=== PATIENT | female | born 1945 | race Caucasian/White ===

== ENCOUNTER 2024-02-12 09:40 | Observation (INO) | payer OTHER, BC ==
[2024-02-12] MEDS ORDERED: NA CHLORIDE 0.9% 500 ML ONE (11:05)
[2024-02-12] MEDS ORDERED: AZITHROMYCIN 250 MG TAB ONE (11:05)
[2024-02-12] MEDS ORDERED: ACETAMINOPHEN 325 MG TABLET ONE (11:05)
--- NOTE | 2024-02-12 11:08 | RAD REPORT ---
Procedure: Chest Pa And Lat (2 Views) HISTORY: Cough COMPARISON: 2017 FINDINGS: The lungs appear clear of acute infiltrate. Bilateral calcified lung granulomas. Calcified hilar lymp h nodes. No significant pleural effusion noted. The heart is normal size. IMPRESSION: No acute abnormality is displayed.
[2024-02-12] MEDS ORDERED: FAMOTIDINE 20 MG/2 ML VIAL IV ONE (11:18)
[2024-02-12] MEDS ORDERED: ASPIRIN 81 MG CHEWABLE TABLET ONE ×2 (11:18→13:21)
[2024-02-12 11:29] LABS: Absolute Basophils 0.1 K/uL (0-0.5); Absolute Lymphocytes (CBC) 1.3 K/uL (0.7-4.9); Absolute Monocytes 0.6 K/uL (0.1-1.3); Absolute Neutrophil 7.8 K/uL (1.8-8.0); Basophils % 0.9 % (0-1.3); Eosinophils % 0.2 % (0-4.4); Hematocrit 35.1 % (36.0-45.0); Hemoglobin 11.5 g/dL (12.0-15.0); Lymphocytes % 13.4 % (15.3-44.8); MCH 27.9 pg (27.0-35.0); MCHC 32.8 g/dL (32.0-36.0); MCV 85.1 fL (80-100); MPV 7.9 fL (7.6-11.3); Monocytes % 6.4 % (3.3-12.3); Neutrophils % 79.1 % (41.7-73.7); Platelets 294 thou/uL (152-406); RBC Red Blood Cell Count 4.13 M/uL (3.86-4.86); Red Cell Distribution Width 16.5 % (12.1-15.2)
[2024-02-12 11:48] LABS: SARS-CoV-2 Antigen CONTROL BLUE LINE VIS/BG OK; SARS-CoV-2 Antigen Rapid Res Negative (Negative)
[2024-02-12 11:49] LABS: Albumin/Globulin Ratio 1.2 (1.1-1.8); Anion Gap 7.8 mEq/L (5.0-15.0); Bilirubin Total 0.4 mg/dL (0.2-1.0); Globulin 3.3 g/dL (2.3-3.5); Potassium 3.8 mEq/L (3.5-5.1); Protein, Total 7.3 g/dL (6.4-8.2)
[2024-02-12 11:58] LABS: Troponin High Sensitivity 10.3 pg/mL (<58.9)
--- NOTE | 2024-02-12 12:42 | RAD REPORT ---
EXAMINATION: CTA CHEST PE CLINICAL INDICATION: Shortness of breath TECHNIQUE: 100 cc 370 Isovue administered intravenously. This examination was performed according to an angiographic protocol with 3D post-processing. This involves 3D reconstructions, MIPs, volume rendered images and/or shaded surface rendering. One or more of the following dose reduction techniqu es were used: Automated exposure control, adjustment of the mA and/or kV according to patient size, and/or iterative reconstruction. Unless otherwise specified, incidental findings do not require dedic ated imaging follow-up. [id number]. COMPARISON: No prior exam. FINDINGS: A pulmonary embolus is not seen. An aortic aneurysm not noted. No pleural effusion. No pericardial effusion. Bilateral calcified lung granulomas are present. IMPRESSION: No evidence of a pulmonary embolism
--- NOTE | 2024-02-12 12:47 | RAD REPORT ---
EXAMINATION: CT ABDOMEN AND PELVIS WITH CONTRAST CLINICAL INDICATION: Abdominal pain TECHNIQUE: CT abdomen and pelvis was performed, after the administration of 100 cc Isovue-300.. Sagit andrew and coronal reconstructions were obtained. One or more of the following dose reduction techniques were used: Automated exposure control, adjustment of the mA and kV according to patient si ze, and iterative reconstruction. Unless otherwise specified, incidental findings do not require dedicated imaging follow-up. [id number]. Oral contrast was not given which limits evaluation of bowel and appendix. COMPARISON: .2018 FINDINGS: Liver, spleen, pancreas, adrenals and kidneys appear unremarkable. Small renal cysts. Cholecystectomy. Post surgical changes involve the colon. Most of the colon has been resected. No obstruction. Spondylosis lumbar spine results in spinal stenosis. Hysterectomy. No adnexal mass. No evidence of diverticulitis. : IMPRESSION: No acute abnormality displayed
[2024-02-12 13:07] LABS: Specific Gravity 1.019 (1.005-1.030); Sqamous Epithelial <5 /HPF (None Seen); Urine Bacteria None Seen /HPF (<20); Urine Bilirubin NEGATIVE (Negative); Urine Blood Negative (Negative); Urine Clarity Clear (Clear); Urine Color Colorless (Yellow); Urine Culture Reflex Order NOT NEEDED; Urine Glucose NEGATIVE (Negative); Urine Ketones NEGATIVE (Negative); Urine Microscopic Reflex YN ORDER UMIC; Urine Nitrite NEGATIVE (Negative); Urine Protein NEGATIVE (Negative); Urine RBC <5 /HPF (None Seen); Urine Urobilinogen Normal (Normal); Urine WBC <5 /HPF (<5); Urine pH 6.5 (5.0-7.0)
[2024-02-12] MEDS ORDERED: METOPROLOL TAR 50 MG TAB ONE (13:20)
--- NOTE | 2024-02-12 13:20 | EDPHYS ---
Physician Documentation [facility] Name: Vesna Dailey Age: 79 yrs Sex: Female : 1945 Arrival Date: 02/12/2024 Time: 09:40 Bed 13 Private MD: ED Physician Alvaro Livingston HPI: 02/11 13:13 This 79 yrs old Female presents to ER via Ambulatory with complaints of Fever, Flu christa Symptoms. 13:13 The patient reports fever, not measured (subjective). Onset: The symptoms/episode christa began/occurred 3 day(s) ago. Modifying factors: there are no obvious modifying factors. Historical: - Allergies: 10:35 meloxicam; cm10 - PMHx: 10:35 Arthritis; Hypertensive disorder; Breast Cancer; cm10 - PSHx: 10:35 Colon Resection; Total abdominal hysterectomy; Cholecystectomy; cm10 - Immunization history:: Adult Immunizations up to date. - Infectious Disease History:: Denies. - Social history:: Smoking status: unknown. ROS: 13:14 Constitutional: Negative for fever, chills, and weight loss, Eyes: Negative for injury, christa pain, redness, and discharge, ENT: Negative for injury, pain, and discharge, Neck: Negative for injury, pain, and swelling, Abdomen/GI: Negative for abdominal pain, nausea, vomiting, diarrhea, and constipation, Back: Negative for injury and pain, : Negative for injury, bleeding, discharge, and swelling, MS/Extremity: Negative for injury and deformity, Skin: Negative for injury, rash, and discoloration, Neuro: Negative for headache, weakness, numbness, tingling, and seizure, Psych: Negative for depression, anxiety, suicide ideation, homicidal ideation, and hallucinations, Allergy/Immunology: Negative for hives, rash, and allergies, Endocrine: Negative for neck swelling, polydipsia, polyuria, polyphagia, and marked weight changes, Hematologic/Lymphatic: Negative for swollen nodes, abnormal bleeding, and unusual bruising, 13:14 Cardiovascular: Positive for chest pain, of the chest, 13:14 Respiratory: Positive for shortness of breath, at rest. 13:14 MS/extremity: Negative for acute changes, swelling, tenderness, Exam: 13:14 Constitutional: This is a well developed, well nourished patient who is awake, alert, christa and in no acute distress. Head/Face: Normocephalic, atraumatic. Eyes: Pupils equal round and reactive to light, extra-ocular motions intact. Lids and lashes normal. Conjunctiva and sclera are non-icteric and not injected. Cornea within normal limits. Periorbital areas with no swelling, redness, or edema. ENT: Nares patent. No nasal discharge, no septal abnormalities noted. Tympanic membranes are normal and external auditory canals are clear. Oropharynx with no redness, swelling, or masses, exudates, or evidence of obstruction, uvula midline. Mucous membranes moist. Neck: Trachea midline, no thyromegaly or masses palpated, and no cervical lymphadenopathy. Supple, full range of motion without nuchal rigidity, or vertebral point tenderness. No Meningismus. Chest/axilla: Normal chest wall appearance and motion. Nontender with no deformity. No lesions are appreciated. Cardiovascular: Regular rate and rhythm with a normal S1 and S2. No gallops, murmurs, or rubs. Normal PMI, no JVD. No pulse deficits. Respiratory: Lungs have equal breath sounds bilaterally, clear to auscultation and percussion. No rales, rhonchi or wheezes noted. No increased work of breathing, no retractions or nasal flaring. Abdomen/GI: Soft, non-tender, with normal bowel sounds. No distension or tympany. No guarding or rebound. No evidence of tenderness throughout. Back: No spinal tenderness. No costovertebral tenderness. Full range of motion. Skin: Warm, dry with normal turgor. Normal color with no rashes, no lesions, and no evidence of cellulitis. MS/ Extremity: Pulses equal, no cyanosis. Neurovascular intact. Full, normal range of motion., bilateral aka Neuro: Awake and alert, GCS 15, oriented to person, place, time, and situation. Cranial nerves II-XII grossly intact. Motor strength 5/5 in all extremities. Sensory grossly intact. Cerebellar exam normal. Normal gait. Psych: Awake, alert, with orientation to person, place and time. Behavior, mood, and affect are within normal limits. 13:14 ECG was reviewed by the Attending Physician. Vital Signs: 10:34 BP 140 / 79; Pulse 94; Resp 17; Temp 98.1; Pulse Ox 99% on R/A; Weight 63.5 kg; Height cm10 5 ft. 4 in. ; Pain 3/10; 11:28 BP 153 / 84; Pulse 90; Resp 15 S; Pulse Ox 98% on R/A; kc6 12:47 BP 137 / 68; Pulse 95; Resp 16 S; Pulse Ox 100% on R/A; kc6 15:33 BP 165 / 75; Pulse 90; Resp 17 S; Pulse Ox 98% on R/A; kc6 10:34 Body Mass Index 24.03 (63.50 kg, 162.56 cm) cm10 10:34 Pain Scale: Adult cm10 MDM: 09:49 Medical Screening Exam initiated christa 13:15 Antibiotic administration: Not indicated, the patient does not have an appreciated christa infiltrate. Differential diagnosis: Anemia Anxiety Reaction asthma, Bronchitis CHF exacerbation, Chronic Obstructive Pulmonary Disease viral Infection, bacterial infection, URI, bronchitis, pneumonia UTI, Myocardial Infarction pneumonia. HEART Score: History: Moderately Suspicious (1), ECG: Non specific repolarization disturbance / LBTB / PM (1), Age: > or = 65 years (2), Risk Factors: > or = 3 Risk factors for atherosclerotic disease (2), [Hypercholesterolemia] [Hypertension] [+ Family HX] Troponin: < or = 1 x Normal Limit (0). The patient was given aspirin in the Emergency Department. ONEIL Risk Score: 1 - patient's age is greater or equal to 65 years, 1 - Three or more CAD risk factors, 1- Known CAD, TOTAL SCORE = 3. Immunization status: Pneumococcal vaccine: within last 5 years. Influenza vaccine: within last 5 years. Data reviewed: vital signs, nurses notes, lab test result(s), EKG, radiologic studies, plain films. Consideration of Admission/Observation Patient was admitted/placed on observation. Escalation of care including admission/observation considered. I considered the following discharge prescriptions or medication management in the emergency department Medications were administered in the Emergency Department. See MAR. Independent interpretation of the following test(s) in the Emergency Department EKG: See my EKG interpretation above. Test considered but Not performed: Ultrasound NO 2 D ECHO. Historians other than the Patient: PT WELL INFORMED. Care significantly affected by the following chronic conditions: Hypertension, Cancer. Counseling: I had a detailed discussion with the patient and/or guardian regarding the historical points, exam findings, and any diagnostic results supporting the discharge/admit diagnosis, lab results, radiology results, the need for further work-up and treatment in the hospital. 02/11 09:50 Order name: CBC with Diff; Complete Time: 13: christa 02/11 09:50 Order name: Comprehensive Metabolic Panel; Complete Time: 13: christa 02/11 09:50 Order name: Flu; Complete Time: 13: christa 02/11 09:50 Order name: SARS RAPID; Complete Time: 13: christa 02/11 10:52 Order name: Troponin HS; Complete Time: 13: christa 02/11 10:52 Order name: BNP; Complete Time: 13: christa 02/11 11:11 Order name: Lipase; Complete Time: 13: christa 02/11 11:11 Order name: Urinalysis w/ reflexes; Complete Time: 13: christa 02/11 13:13 Order name: Lipid Profile [facility] 02/11 14:12 Order name: Respiratory Syncytial Virus Ag EDMS 02/11 15:03 Order name: Thyroid Stimulating Hormone EDMS 02/11 15:03 Order name: CBC with Automated Diff EDMS 02/11 15:03 Order name: CBC with Automated Diff EDMS 02/11 15:03 Order name: Comprehensive Metabolic Panel EDMS 02/11 15:04 Order name: Comprehensive Metabolic Panel EDMS 02/11 15:04 Order name: Magnesium EDMS 02/11 15:04 Order name: Magnesium EDMS 02/11 15:04 Order name: Phosphorus EDMS 02/11 15:04 Order name: Phosphorus EDMS 02/11 15:04 Order name: Troponin High Sensitivity EDMS 02/11 15:04 Order name: Troponin High Sensitivity EDMS 02/11 15:04 Order name: Troponin High Sensitivity EDMS 02/11 09:50 Order name: Chest Pa And Lat (2 Views) XRAY; Complete Time: 13: christa 02/11 10:53 Order name: CT Chest For PE Angio; Complete Time: 13: christa 02/11 11:11 Order name: CT Abd/Pelvis - IV Contrast Only; Complete Time: 13:08 christa 02/11 15:03 Order name: Echo with Doppler EDMS 02/11 10:52 Order name: EKG; Complete Time: 10:52 christa 02/11 10:52 Order name: EKG - Nurse/Tech; Complete Time: 11:03 christa EC:14 Rate is 90 beats/min. Rhythm is regular. QRS [place] is Normal. OR interval is normal. QRS christa interval is normal. QT interval is normal. No Q waves. T waves are Normal. No ST changes noted. Clinical impression: NSR w/ Non-specific ST/T Changes and No evidence of ischemia. Interpreted by me. Reviewed by me. Administered Medications: 11:27 Drug: NS 0.9% IV 500 ml 500 ml IV at 1 bolus once; to be given as a bolus over 30 kc6 minutes Volume: 500 ml; Route: IV; Rate: 1 bolus; Site: right antecubital; 12:46 Follow up: Response: No adverse reaction; IV Status: Completed infusion; IV Intake: kc6 500ml 11:27 Drug: Acetaminophen PO 650 mg PO once Route: PO; kc6 12:46 Follow up: Response: No adverse reaction kc6 11:27 Drug: AZITHromycin PO 500 mg PO once Route: PO; kc6 12:46 Follow up: Response: No adverse reaction kc6 11:27 Drug: Aspirin PO Chewable Tablet 81 mg PO once Route: PO; kc6 12:46 Follow up: Response: No adverse reaction kc6 11:27 Drug: Famotidine IVP 20 mg IVP once; dilute with 10 mL 0.9% NaCl; give over 2 minutes kc6 Route: IVP; Site: right antecubital; 12:46 Follow up: Response: No adverse reaction kc6 13:33 Drug: Aspirin PO Chewable Tablet 81 mg PO once Route: PO; kc6 15:34 Follow up: Response: No adverse reaction kc6 13:33 Drug: Metoprolol PO 50 mg PO once Route: PO; kc6 15:34 Follow up: Response: No adverse reaction kc6 13:33 Drug: Enoxaparin Sub-Q 1 mg/kg Sub-Q once Route: Sub-Q; Site: abdomen; kc6 15:34 Follow up: Response: No adverse reaction kc6 13:33 Drug: Atorvastatin PO 20 mg PO once Route: PO; kc6 15:33 Follow up: Response: No adverse reaction kc6 Disposition Summary: 02/12/24 13:19 Hospitalization Ordered Notes: Provider: Malu Nugent cha Location: Telemetry/MedSurg (observation) christa Condition: Stable christa Problem: new christa Symptoms: have improved christa Bed/Room Type: Standard christa Hospitalization Status: Observation(02/12/24 13:21) christa Room Assignment: 205(02/12/24 15:15) eb Diagnosis - Chest pain, unspecified christa - Weakness christa - Dyspnea christa - Angina pectoris, unspecified christa Forms: - Medication Reconciliation Form christa - SBAR form christa - Leadership Thank You Letter [facility] Signatures: Dispatcher [employer] EDMS Alvaro Livingston MD MD cha Botello, Elizabeth eb Campbell, Kaitlyn RN RN kc6 Gayla Peace RN RN cm10 Corrections: (The following items were deleted from the chart) 10:53 10:53 Chest For PE Angio+CT.RAD.BRZ ordered. [facility] 13:21 13:19 Inpatient Admission [facility] 15:15 13:19 christa eb
--- NOTE | 2024-02-12 13:20 | ER ---
Nurse's Notes [facility] Name: Vesna Dailey Age: 79 yrs Sex: Female : 1945 Arrival Date: 02/12/2024 Time: 09:40 Bed 13 Private MD: Diagnosis: Chest pain, unspecified;Weakness;Dyspnea;Angina pectoris, unspecified Presentation: 02/11 10:34 Chief complaint: Patient states: Chest tightness onset last night. pt also reports that cm10 she has been dizzy and having episodes of feeling hot and cold. Coronavirus screen: Client denies travel out of the [place] in the last 14 days. Ebola Screen: Patient denies travel to an Ebola-affected area in the 21 days before illness onset. No symptoms or risks identified at this time. Initial Sepsis Screen: Does the patient meet any 2 criteria? HR > 90 bpm. Does the patient have a suspected source of infection? No. Patient's initial sepsis screen is negative. Risk Assessment: Do you want to hurt yourself or someone else? Patient reports no desire to harm self or others. Onset of symptoms was February 12, 2024. 10:34 Method Of Arrival: Ambulatory cm10 10:34 Acuity: ANT 3 cm10 Triage Assessment: 10:37 General: Appears in no apparent distress. comfortable, Behavior is calm, cooperative. cm10 Neuro: No deficits noted. Level of Consciousness is awake, alert, obeys commands, Oriented to person, place, time, situation, Appropriate for age. Respiratory: No deficits noted. Airway is patent Respiratory effort is even, unlabored, Respiratory pattern is regular, symmetrical. Historical: - Allergies: 10:35 meloxicam; cm10 - PMHx: 10:35 Arthritis; Hypertensive disorder; Breast Cancer; cm10 - PSHx: 10:35 Colon Resection; Total abdominal hysterectomy; Cholecystectomy; cm10 - Immunization history:: Adult Immunizations up to date. - Infectious Disease History:: Denies. - Social history:: Smoking status: unknown. Screenin:14 [facility] ED Fall Risk Assessment (Adult) History of falling in the last 3 months, kc6 including since admission No falls in past 3 months (0 pts) Confusion or Disorientation No (0 pts) Intoxicated or Sedated No (0 pts) Impaired Gait No (0 pts) Mobility Assist Device Used No (0 pt) Altered Elimination No (0 pt) Score/Fall Risk Level 0 - 2 = Low Risk Oriented to surroundings, Maintained a safe environment. Abuse screen: Denies threats or abuse. Denies injuries from another. Nutritional screening: No deficits noted. Tuberculosis screening: No symptoms or risk factors identified. Assessment: 11:27 General: Appears in no apparent distress. comfortable, well groomed, well developed, kc6 Behavior is calm, cooperative, appropriate for age. Pain: Complains of pain in xiphoid area. Neuro: Level of Consciousness is awake, alert, obeys commands, Oriented to person, place, time, situation, Appropriate for age Reports dizziness. Cardiovascular: Reports chest pain, lightheadedness, Capillary refill < 3 seconds. Respiratory: Airway is patent Trachea midline Respiratory effort is even, unlabored, Respiratory pattern is regular, symmetrical. GI: No signs and/or symptoms were reported involving the gastrointestinal system. : No signs and/or symptoms were reported regarding the genitourinary system. EENT: No signs and/or symptoms were reported regarding the EENT system. Derm: No signs and/or symptoms reported regarding the dermatologic system. Skin is intact, is healthy with good turgor, Skin is pink, warm \T\ dry. Musculoskeletal: No signs and/or symptoms reported regarding the musculoskeletal system. Circulation, motion, and sensation intact. Range of motion: intact in all extremities. 12:46 Reassessment: Patient appears in no apparent distress at this time. No changes from kc6 previously documented assessment. Patient and/or family updated on plan of care and expected duration. Pain level reassessed. Patient is alert, oriented x 3, equal unlabored respirations, skin warm/dry/pink. 13:46 Reassessment: Patient appears in no apparent distress at this time. No changes from kc6 previously documented assessment. Patient and/or family updated on plan of care and expected duration. Pain level reassessed. Patient is alert, oriented x 3, equal unlabored respirations, skin warm/dry/pink. 14:41 Reassessment: Patient appears in no apparent distress at this time. No changes from kc6 previously documented assessment. Patient and/or family updated on plan of care and expected duration. Pain level reassessed. Patient is alert, oriented x 3, equal unlabored respirations, skin warm/dry/pink. 15:33 Reassessment: Patient appears in no apparent distress at this time. No changes from kc6 previously documented assessment. Patient and/or family updated on plan of care and expected duration. Pain level reassessed. Patient is alert, oriented x 3, equal unlabored respirations, skin warm/dry/pink. Vital Signs: 10:34 BP 140 / 79; Pulse 94; Resp 17; Temp 98.1; Pulse Ox 99% on R/A; Weight 63.5 kg; Height cm10 5 ft. 4 in. ; Pain 3/10; 11:28 BP 153 / 84; Pulse 90; Resp 15 S; Pulse Ox 98% on R/A; kc6 12:47 BP 137 / 68; Pulse 95; Resp 16 S; Pulse Ox 100% on R/A; kc6 15:33 BP 165 / 75; Pulse 90; Resp 17 S; Pulse Ox 98% on R/A; kc6 10:34 Body Mass Index 24.03 (63.50 kg, 162.56 cm) cm10 10:34 Pain Scale: Adult cm10 ED Course: 09:47 Patient arrived in ED. sj2 09:49 Alvaro Livingston MD is Attending Physician. christa 10:35 Triage completed. cm10 10:37 Arm band placed on right wrist. Patient placed in waiting room. cm10 10:59 Katerin Ogden, RN is Primary Nurse. kc6 11:05 Chest Pa And Lat (2 Views) XRAY In Process Unspecified. EDMS 11:14 Patient has correct armband on for positive identification. Bed in low position. Call kc6 light in reach. Side rails up X 1. Pulse ox on. NIBP on. Door closed. Noise minimized. Lights dimmed. Warm blanket given. Pillow given. 11:14 Patient maintains SpO2 saturation greater than 95% on room air. kc6 11:14 Inserted saline lock: 20 gauge in right forearm, using aseptic technique. Blood kc6 collected. Flushed with 10 mL NS. 12:27 CT Chest For PE Angio In Process Unspecified. EDMS 12:29 CT Abd/Pelvis - IV Contrast Only In Process Unspecified. EDMS 13:18 Malu Nugent is Hospitalizing Provider. christa 14:35 Diet: Patient given a heart healthy meal tray. Tolerated well. kc6 16:18 No provider procedures requiring assistance completed. Patient admitted, IV remains in kc6 place. Administered Medications: 11:27 Drug: NS 0.9% IV 500 ml 500 ml IV at 1 bolus once; to be given as a bolus over 30 kc6 minutes Volume: 500 ml; Route: IV; Rate: 1 bolus; Site: right antecubital; 12:46 Follow up: Response: No adverse reaction; IV Status: Completed infusion; IV Intake: kc6 500ml 11:27 Drug: Acetaminophen PO 650 mg PO once Route: PO; kc6 12:46 Follow up: Response: No adverse reaction kc6 11:27 Drug: AZITHromycin PO 500 mg PO once Route: PO; kc6 12:46 Follow up: Response: No adverse reaction kc6 11:27 Drug: Aspirin PO Chewable Tablet 81 mg PO once Route: PO; kc6 12:46 Follow up: Response: No adverse reaction kc6 11:27 Drug: Famotidine IVP 20 mg IVP once; dilute with 10 mL 0.9% NaCl; give over 2 minutes kc6 Route: IVP; Site: right antecubital; 12:46 Follow up: Response: No adverse reaction kc6 13:33 Drug: Aspirin PO Chewable Tablet 81 mg PO once Route: PO; kc6 15:34 Follow up: Response: No adverse reaction kc6 13:33 Drug: Metoprolol PO 50 mg PO once Route: PO; kc6 15:34 Follow up: Response: No adverse reaction kc6 13:33 Drug: Enoxaparin Sub-Q 1 mg/kg Sub-Q once Route: Sub-Q; Site: abdomen; kc6 15:34 Follow up: Response: No adverse reaction kc6 13:33 Drug: Atorvastatin PO 20 mg PO once Route: PO; kc6 15:33 Follow up: Response: No adverse reaction kc6 Medication: 16:19 VIS not applicable for this client. kc6 Intake: 12:46 IV: 500ml; Total: 500ml. kc6 Outcome: 13:19 Decision to Hospitalize by Provider. christa 16:18 Admitted to Med/surg accompanied by monik, via wheelchair, room 205, with chart, Report kc6 called to MAY Joya 16:18 Condition: good 16:18 Instructed on the need for admit, 16:19 Patient left the ED. kc6 Signatures: Dispatcher [employer] Alvaro Morrison MD MD cha Campbell, Kaitlyn, RN RN kc6 Gayla Peace RN RN cm10 Harini Del [place]
[2024-02-12] MEDS ORDERED: ATORVASTATIN 20 MG TAB ONE (13:21)
[2024-02-12] MEDS ORDERED: ENOXAPARIN 60 MG/0.6 ML SQ ONE (13:21)
[2024-02-12] MEDS ORDERED: SODIUM CHLORIDE 0.9% 10ML INJ IV PRN (15:02)
--- NOTE | 2024-02-12 15:17 | P.HP ---
Certification for Inpatient Patient admitted to: Observation With expected LOS: <2 Midnights Patient will require the following post-hospital care: None Practitioner: I am a practitioner with admitting privileges, knowledge of patient current condition, hospital course, and medical plan of care. Services: Services provided to patient in accordance with Admission requirements found in Title 42 Section 412.3 of the Code of Federal Regulations Patient History Date of Service: 02/12/24 Reason for admission: Chest pain, malaise History of Present Illness: is a 79-year-old pleasant female who is alert, oriented, fully mobile. She presented to the emergency department today with a complaint of some epigastric/chest discomfort last p.m. She also states she has some dizziness with some temperature variations. Workup done in the emergency department including labs, viral studies, urinalysis, and imaging (chest x-ray, CTA chest, CT abdomen and pelvis with contrast) are unremarkable except for some very mild LISA at 1.19 with a BUN of 22, and a GFR of 46. Upon interviewing the patient, she relates that she has had increased weakness in her knees and inability to walk long distances for fear of falling since July. She denies shortness of breath but does state she feels fatigued. She states that last night she had some epigastric/chest discomfort, some mild dizziness, and is most concerned about the weakness. I suspect GERD secondary to medications patient takes, specifically alendronate, and mild volume deficit. We will admit her for serial enzymes, Protonix, and a small fluid bolus. Secondary to the complaint of significant fatigue over time with worsening with activity, we will order an echo for tomorrow. Allergies No Known Allergies Allergy (Unverified 03/16/13 12:42) Home medications list reviewed: Yes Home Medications: Alendronate Sodium 70 mg PO EVERY 7TH DAY 02/12/24 Aspirin [Aspirin EC] 81 mg PO DAILY 02/12/24 Bacillus Coagulans/Vitamin D3 [Probiotic 2 Billion Gummies] 2 tab PO DAILY 02/12/24 Calcium Carbonate/Vitamin D3 [Calcium 500 mg Chewable Tablet] 500 mg PO DAILY 02/12/24 Cholecalciferol (Vitamin D3) [D3-5000] 125 mcg PO DAILY 02/12/24 Cranberry Conc/C/Bacill Coag [Cranberry Tablet] 2 tab PO DAILY 02/12/24 Folic Acid 1 mg PO DAILY 02/12/24 Hydroxychloroquine [Plaquenil*] 400 mg PO DAILY 02/12/24 Magnesium Citrate 500 mg PO DAILY 02/12/24 Methotrexate Sodium [Methotrexate] 4 tab PO MEZA 02/12/24 Metoprolol Succinate 1 tab PO DAILY 02/12/24 Multivit-Min/Iron/FA/Vit K/Lut [Centrum Women 50 Plus Minis Tb] 1 tab PO DAILY 02/12/24 [place]-3S/Dha/Epa/Fish Oil [[place]-3 Fish Oil 1,000 mg Sfgl] 1 cap PO DAILY 02/12/24 - Past Medical/Surgical History Has patient received pneumonia vaccine in the past: Yes Diabetic: No -: TIA -: Colon CA -: Skin CA nose -: colostomy -: Rheumatoid arthritis -: Hysterectomy -: Appendectomy -: Tubal Ligation -: Colon Removal -: (R) Breast cyst removal -: scar tissue removal from colon removal Psychosocial/ Personal History: Lives alone, works, states increase in malaise recently as joints feel fatigued - Social History Smoking Status: Unknown if ever smoked Alcohol use: No CD- Drugs: No Caffeine use: Yes Place of Residence: Home Review of Systems 10-point ROS is otherwise unremarkable General: Malaise, As per HPI Cardiovascular: Chest Pain, As per HPI Neurological: Other (Joints feel fatigued, feels she cannot do what she normally does second to malaise) Physical Examination - Studies Laboratory Data (last 24 hrs) 02/12/24 02/12/24 02/12/24 13:13 11:17 11:17 WBC Hgb Hct Plt Count Sodium 140 Potassium 3.8 BUN 22 H Creatinine 1.19 H Glucose 89 Total Bilirubin 0.4 AST 33 ALT 32 Alkaline Phosphatase 50 Triglycerides 124 Cholesterol 153 HDL Cholesterol 85 H Cholesterol/HDL Ratio 1.80 Lipase 50 02/12/24 11:17 WBC 9.90 Hgb 11.5 L Hct 35.1 L Plt Count 294 Sodium Potassium BUN Creatinine Glucose Total Bilirubin AST ALT Alkaline Phosphatase Triglycerides Cholesterol HDL Cholesterol Cholesterol/HDL Ratio Lipase Microbiology Data (last 24 hrs): 02/12/24 11:25 Nasopharnyx Influenza Type A Antigen Screen - Final 02/12/24 11:25 Nasopharnyx Influenza Type B Antigen Screen - Final Assessment and Plan - Plan Admit for observation Malaise and generalized weakness Echo in a.m. Chest pain Serial troponins and EKG Echocardiogram Continue home meds IV morphine for pain control VTE/GI prophylaxis Code status: Full probable DC in a.m. Discharge Plan: Home Plan to discharge in: 24 Hours - Advance Directives Does patient have a Living Will: Yes Does patient have a Durable POA for Healthcare: Yes
[2024-02-12] MEDS: NA CHLORIDE 0.9% 500 ML IV ONE (15:30)
[2024-02-12 17:50] VITALS: BMI 24.0
[2024-02-12] MEDS: PANTOPRAZOLE 40 MG INJ IVP SCH (20:33)
[2024-02-12] MEDS: METOPROLOL XL 25 MG TAB PO SCH (20:33)
[2024-02-12] MEDS: HYDROXYCHLOROQUINE 200MG TAB PO SCH (20:33)
[2024-02-12] MEDS: TIZANIDINE 4 MG TABLET PO SCH (20:33)
[2024-02-12] MEDS ORDERED: METHYL SALICYLATE/MENTHOL 3 OZ TUBE TOP PRN (22:31)
[2024-02-12] MEDS: ACETAMINOPHEN 500 MG TAB PO PRN (23:04)
[2024-02-13 05:47] LABS: Absolute Basophils 0.1 K/uL (0-0.5); Absolute Eosinophils 0.1 K/uL (0-0.5); Absolute Monocytes 0.4 K/uL (0.1-1.3); Absolute Neutrophil 3.3 K/uL (1.8-8.0); Basophils % 2.1 % (0-1.3); Eosinophils % 1.6 % (0-4.4); Hematocrit 30.4 % (36.0-45.0); Hemoglobin 10.2 g/dL (12.0-15.0); MCH 28.2 pg (27.0-35.0); MCHC 33.4 g/dL (32.0-36.0); MCV 84.4 fL (80-100); MPV 7.8 fL (7.6-11.3); Monocytes % 9.1 % (3.3-12.3); Neutrophils % 67.2 % (41.7-73.7); Platelets 236 thou/uL (152-406); Red Cell Distribution Width 16.3 % (12.1-15.2)
[2024-02-13 06:10] LABS: Albumin 3.1 g/dL (3.4-5.0); Albumin/Globulin Ratio 1.1 (1.1-1.8); Anion Gap 7.5 mEq/L (5.0-15.0); Bilirubin Total 0.4 mg/dL (0.2-1.0); Globulin 2.9 g/dL (2.3-3.5); Magnesium 1.8 mg/dL (1.6-2.4); Phosphorus 3.7 mg/dL (2.5-4.9); Potassium 3.5 mEq/L (3.5-5.1)
[2024-02-13] MEDS: ENOXAPARIN 40 MG/0.4 ML SQ SCH (09:30)
[2024-02-13] MEDS: ASPIRIN EC 81 MG TAB PO SCH (09:30)
[2024-02-13] MEDS: FOLIC ACID 1 MG TABLET PO SCH (09:30)
[2024-02-13] MEDS: MULTIVITAMIN TAB PO SCH (09:30)
[2024-02-13] MEDS: POTASSIUM CL SA 10 MEQ TAB PO ONE (09:31)
[2024-02-13 12:15] VITALS: BP 115/53; TEMP 97.8
[2024-02-13 12:37] VITALS: O2SAT 96
--- NOTE | 2024-02-13 14:18 | P.DS ---
Admission Date: 02/12/24 Discharge Date: 02/13/24 Disposition: ROUTINE DISCHARGE Reason for Admission: Chest pain, malaise Brief History of Present Illness: is a 79-year-old pleasant female who is alert, oriented, fully mobile. She presented to the emergency department today with a complaint of some epigastric/chest discomfort last p.m. She also states she has some dizziness with some temperature variations. Workup done in the emergency department including labs, viral studies, urinalysis, and imaging (chest x-ray, CTA chest, CT abdomen and pelvis with contrast) are unremarkable except for some very mild LISA at 1.19 with a BUN of 22, and a GFR of 46. Upon interviewing the patient, she relates that she has had increased weakness in her knees and inability to walk long distances for fear of falling since July. She denies shortness of breath but does state she feels fatigued. She states that last night she had some epigastric/chest discomfort, some mild dizziness, and is most concerned about the weakness. I suspect GERD secondary to medications patient takes, specifically alendronate, and mild volume deficit. We will admit her for serial enzymes, Protonix, and a small fluid bolus. Secondary to the complaint of significant fatigue over time with worsening with activity, we will order an echo for tomorrow. General: Alert, In no apparent distress, Oriented x3 HEENT: Atraumatic, Normocephalic Neck: Supple, 2+ carotid pulse no bruit Respiratory: Clear to auscultation bilaterally, Normal air movement Cardiovascular: No edema, Normal pulses, Regular rate/rhythm Capillary refill: <2 Seconds Gastrointestinal: Normal bowel sounds, Soft and benign Musculoskeletal: No clubbing, No swelling Integumentary: No rashes, No breakdown Neurological: Normal speech, Normal strength at 5/5 x4 extr Hospital Course: is a 79-year-old pleasant female who is alert, oriented, fully mobile. She presented to the emergency department today with a complaint of some epigastric/chest discomfort last p.m. She also states she has some dizziness with some temperature variations. She reports chronic dizziness. no reported shortness of breath, fever, NV. serial trop were negative. ECHO shows mild systolic dysfunction. she has an apt with cardiology on tue. tolerating diet. stable to discharge home Assessment Chest pain serial trop were negative, ECHO shows mild systolic dysfunction. GERD discharge home on PPI dizziness B) LE weakness, PT to eval for DME needs. CT abdomen/pelvis o acute abnormality displayed CT of chest No evidence of a pulmonary embolism Continue home medicines as previously prescribed GOAL: Clear understanding of disease process INSTRUCTIONS: Physician Discharge Instructions: -Follow up with cardiology after discharge. -Follow-up with PCP in 1 to 2 weeks -Please call Dr. Colón at [phone] if any questions regarding hospital stay -Please call nursing station at [phone] if any nursing or medication questions -Return to the emergency room if symptoms worsen Diet: ADA, low sodium Activity: Fall precautions Vital Signs/Physical Exam: Temp Pulse Resp BP Pulse Ox 97.8 F 67 16 115/53 L 96 02/13/24 12:00 02/13/24 12:00 02/13/24 12:00 02/13/24 12:00 02/13/24 12:00 Laboratory Data at Discharge: WBC 5.00 thou/uL (4.3-10.9) 02/13/24 05:37 Hgb 10.2 g/dL (12.0-15.0) L D 02/13/24 05:37 Hct 30.4 % (36.0-45.0) L 02/13/24 05:37 Plt Count 236 thou/uL (152-406) 02/13/24 05:37 Sodium 141 mEq/L (136-145) 02/13/24 05:37 Potassium 3.5 mEq/L (3.5-5.1) 02/13/24 05:37 BUN 18 mg/dL (7-18) 02/13/24 05:37 Creatinine 1.03 mg/dL (0.55-1.02) H 02/13/24 05:37 Glucose 90 mg/dL (74-106) 02/13/24 05:37 Phosphorus 3.7 mg/dL (2.5-4.9) 02/13/24 05:37 Magnesium 1.8 mg/dL (1.6-2.4) 02/13/24 05:37 Total Bilirubin 0.4 mg/dL (0.2-1.0) 02/13/24 05:37 AST 29 U/L (15-37) 02/13/24 05:37 ALT 27 U/L (13-56) 02/13/24 05:37 Alkaline Phosphatase 42 U/L (45-117) L 02/13/24 05:37 Triglycerides 124 mg/dL (<150) 02/12/24 13:13 Cholesterol 153 mg/dL (<200) 02/12/24 13:13 HDL Cholesterol 85 mg/dL (40-60) H 02/12/24 13:13 Cholesterol/HDL Ratio 1.80 02/12/24 13:13 Lipase 50 U/L (13-75) 02/12/24 11:17 Home Medications: Alendronate Sodium 70 mg PO EVERY 7TH DAY 02/12/24 Aspirin [Aspirin EC] 81 mg PO DAILY 02/12/24 Bacillus Coagulans/Vitamin D3 [Probiotic 2 Billion Gummies] 2 tab PO DAILY 02/12/24 Calcium Carbonate/Vitamin D3 [Calcium 500 mg Chewable Tablet] 500 mg PO DAILY 02/12/24 Cholecalciferol (Vitamin D3) [D3-5000] 125 mcg PO DAILY 02/12/24 Cranberry Conc/C/Bacill Coag [Cranberry Tablet] 2 tab PO DAILY 02/12/24 Folic Acid 1 mg PO DAILY 02/12/24 Hydroxychloroquine [Plaquenil*] 400 mg PO DAILY 02/12/24 Magnesium Citrate 500 mg PO DAILY 02/12/24 Methotrexate Sodium [Methotrexate] 4 tab PO MEZA 02/12/24 Metoprolol Succinate 1 tab PO DAILY 02/12/24 Multivit-Min/Iron/FA/Vit K/Lut [Centrum Women 50 Plus Minis Tb] 1 tab PO DAILY 02/12/24 [place]-3S/Dha/Epa/Fish Oil [[place]-3 Fish Oil 1,000 mg Sfgl] 1 cap PO DAILY 02/12/24 Physician Discharge Instructions: is a 79-year-old pleasant female who is alert, oriented, fully mobile. She presented to the emergency department today with a complaint of some epigastric/chest discomfort last p.m. She also states she has some dizziness with some temperature variations. She reports chronic dizziness. no reported shortness of breath, fever, NV. serial trop were negative. ECHO shows mild systolic dysfunction. she has an apt with cardiology on tue. tolerating diet. stable to discharge home Assessment Chest pain serial trop were negative, ECHO shows mild systolic dysfunction. GERD discharge home on PPI dizziness B) LE weakness, PT to eval for DME needs. CT abdomen/pelvis o acute abnormality displayed CT of chest No evidence of a pulmonary embolism Continue home medicines as previously prescribed GOAL: Clear understanding of disease process INSTRUCTIONS: Physician Discharge Instructions: -Follow up with cardiology after discharge. -Follow-up with PCP in 1 to 2 weeks -Please call Dr. Colón at [phone] if any questions regarding hospital stay -Please call nursing station at [phone] if any nursing or medication questions -Return to the emergency room if symptoms worsen Diet: ADA, low sodium Activity: Fall precautions Diet: AHA Followup: Mariajose Birmingham NP [Primary Care Provider] - 1-2 Weeks Zeferino Lua MD [ACTIVE - CAN ADMIT] - 1-2 Weeks Time spent managing pt's care (in minutes): 45
--- NOTE | 2024-02-13 14:19 | ECHO ---
HEIGHT: 5 ft 4 in WEIGHT: 139 lb 15.897 oz DATE OF STUDY: 02/13/[address]: Gail Petty CONTINUOUS DRYOUT OPERATOR-BC 2-DIMENSIONAL: YES M.MODE: YES DOPPLER: YES COLOR FLOW: YES TDS: NO PORTABLE: YES DEFINITY: NO BUBBLE STUDY: NO DIAGNOSIS: CHEST PAIN/EPIGASTRIC PAIN/FATIGUE CARDIAC HISTORY: CATHERIZATION: NO SURGERY: NO PROSTHETIC VALVE: NO PACEMAKER: NO MEASUREMENTS (cm) DIASTOLIC (NORMALS) SYSTOLIC (NORMALS) IVSd 0.8 (0.6-1.2) LA Diam 2.5 (1.9-4.0) LVEF 73% LVIDd 3.9 (3.5-5.7) LVIDs 2.3 (2.0-3.5) %FS 41% LVPWd 1.0 (0.6-1.2) Ao Diam 2.9 (2.0-3.7) 2 DIMENSIONAL ASSESSMENT: RIGHT ATRIUM: NORMAL LEFT ATRIUM: NORMAL RIGHT VENTRICLE: NORMAL LEFT VENTRICLE: NORMAL TRICUSPID VALVE: NORMAL MITRAL VALVE: NORMAL PULMONIC VALVE: NORMAL AORTIC VALVE: NORMAL PERICARDIAL EFFUSION: NONE AORTIC ROOT: NORMAL LEFT VENTRICULAR WALL MOTION: NORMAL. DOPPLER/COLOR FLOW: NORMAL. COMMENTS: 1. NORMAL LEFT VENTRICULAR SYSTOLIC FUNCTION, EJECTION FRACTION 60-65%, NORMAL WALL MOTION. 2. NORMAL DIASTOLIC FUNCTION. TECHNOLOGIST: JORGE LEE
[2024-02-13] MEDS ORDERED: PANTOPRAZOLE 40MG TABLET PO SCH (16:30)
--- NOTE | 2024-02-13 16:34 | RAD REPORT ---
EXAMINATION: UPPER EXTREMITY VENOUS UNILATE CLINICAL INDICATION: Arm pain TECHNIQUE: Complete bilateral duplex sonography of the left upper extremity veins was performed. The examination included compression for vein patency, color Doppler imaging and flow augmentation in response to distal compression of the internal jugular,, subclavian, axillary, brachial, radial, ulna r, cephalic and basilic veins. .Grayscale, color and spectral analysis performed on all vessels COMPARISON: No prior exam. FINDINGS: The left internal jugular, subclavian, axillary, brachial, basilic, cephalic, radial and ulnar veins are generally compressible and demonstrate augmentation. Color Doppler demonstrates good flow. IMPRESSION: No evidence of venous thrombus left arm
== END 2024-02-13 15:23 | disposition home or self-care (01) ==
LOC: ER 09:40 → ERHOLD 15:05 → 2ND 16:12
PROVIDERS: ADMIT Internal Medicine; ATTEND Hospitalist
DX: R07.9 Chest pain, unspecified (principal); R53.81 Other malaise; R42 Dizziness and giddiness; K21.9 Gastro-esophageal reflux disease without esophagitis; Z85.3 Personal history of malignant neoplasm of breast; I10 Essential (primary) hypertension; R06.00 Dyspnea, unspecified; Z11.52 Encounter for screening for COVID-19
CPT/HCPCS: 96361; 93306; 85025 ×2; 81001; 36415 ×2; 83735; 82550; 84100; 80061; 84443; 84484 ×3; 83690; 80053 ×2; 83880; 87807; 87804 ×2; 71275; 74177; 71046; 93971; 97161; 96372; 96374; 99285; 87811; Q9967; J1650 ×2; J2470 ×2; J7040; G0378 ×3